=== PATIENT | female | born 1970 | race African-American/Black ===

== ENCOUNTER 2020-07-30 18:39 | Emergency (ER) | payer OTHER ==
[~2020-07-30] VITALS: Ht 167.6 cm; Wt 75.4 kg
--- NOTE | 2020-07-30 18:40 | NUR ---
BIB SELF C/O R WRIST INJURY WHILE ROLLER SKATING. TO ER BED 4, HOOKED TO BP CUFF AND POX, WARM BLANKET PROVIDED, AWAITING MD ROBLES.
--- NOTE | 2020-07-30 18:46 | NUR ---
ICE PACK APPLIED TO R WRIST
--- NOTE | 2020-07-30 18:50 | NUR ---
YEYO COTTO AT BEDSIDE
[2020-07-30] MEDS ORDERED: HYDROCODONE/APAP 5/325MG TABLET ONE (18:56)
[2020-07-30] MEDS ORDERED: ONDANSETRON 4 MG TAB.RAPDIS ONE (18:57)
[2020-07-30] MEDS ORDERED: ONDANSETRON 4 MG TAB.RAPDIS SL ONE (19:00)
[2020-07-30] MEDS ORDERED: HYDROCODONE/APAP 5/325MG TABLET PO ONE (19:00)
--- NOTE | 2020-07-30 19:14 | NUR ---
REPORT GIVEN TO CELINE NUGENT FOR APOLINAR
--- NOTE | 2020-07-30 19:20 | NUR ---
pt remains in bed resting comfortably awaiting xray results
--- NOTE | 2020-07-30 19:46 | NUR ---
Patient discharged to home in stable condition. Written and verbal after care instructions given. Patient verbalizes understanding of instruction.
[2020-07-30 20:00] VITALS: BP 153/103
== END 2020-07-30 20:01 | disposition home or self-care (01) ==
LOC: ER 18:45
DX: S52.571A Other intraarticular fracture of lower end of right radius, initial encounter for closed fracture (principal); Z88.0 Allergy status to penicillin; W18.39XA Other fall on same level, initial encounter; Y93.89 Activity, other specified; Y92.89 Other specified places as the place of occurrence of the external cause; Y99.8 Other external cause status
CPT/HCPCS: 29125; 73110; 99283; Q0162

== ENCOUNTER 2023-06-08 15:41 | Emergency (ER) | payer OTHER ==
[~2023-06-08] VITALS: Ht 167.6 cm; Wt 67.1 kg
[2023-06-08] MEDS ORDERED: KETOROLAC TROMETHAMINE INJ 30 MG/ML VIAL ONE (16:57)
[2023-06-08] MEDS ORDERED: CYCLOBENZAPRINE 10 MG TABLET ONE (16:57)
[2023-06-08] MEDS ORDERED: KETOROLAC TROMETHAMINE INJ 30 MG/ML VIAL IM ONE (17:00)
[2023-06-08] MEDS ORDERED: CYCLOBENZAPRINE 10 MG TABLET PO ONE (17:00)
[2023-06-08] MEDS ORDERED: CYCL5TAB PO (17:51)
[2023-06-08] MEDS ORDERED: KETO10TA2 PO (17:51)
[2023-06-08 18:17] VITALS: BP 140/88; TEMP 97.3; O2SAT 100
== END 2023-06-08 18:17 | disposition home or self-care (01) ==
LOC: ER 15:51
DX: S83.91XA Sprain of unspecified site of right knee, initial encounter (principal); F32.A Depression, unspecified; F41.9 Anxiety disorder, unspecified; Z88.0 Allergy status to penicillin; X58.XXXA Exposure to other specified factors, initial encounter; Y93.89 Activity, other specified; Y92.89 Other specified places as the place of occurrence of the external cause; Y99.8 Other external cause status
CPT/HCPCS: 99283; 96372; 73564; J1885